=== PATIENT | male | born 1985 | race Caucasian/White ===

== ENCOUNTER 2017-04-01 18:34 | Emergency (ER) | payer OTHER, BC ==
[~2017-04-01] VITALS: Ht 172.7 cm; Wt 65.8 kg
--- NOTE | 2017-04-01 19:20 | NUR ---
LABS DRAWN EXCEPT URINE, EKG DONE. PT ARRIVED WITH 16G TO LEFT AC. PT COOPERATIVE, WATER AT THE BEDSIDE.
[2017-04-01 19:22] LABS: BASOPHILS # (AUTO) 0.2 K/uL (0.0-8.0); BASOPHILS % (AUTO) 1.7 % (0.0-2.0); EOSINOPHILS # (AUTO) 0.1 K/uL (0.0-0.7); EOSINOPHILS % (AUTO) 1.1 % (0.0-7.0); HEMATOCRIT 47.7 % (36.7-47.1); HEMOGLOBIN 16.2 g/dL (12.5-16.3); LYMPHOCYTES # (AUTO) 2.2 K/uL (20.0-40.0); LYMPHOCYTES % (AUTO) 21.6 % (20.5-51.5); MEAN CORPUSCULAR HEMOGLOBIN 28.7 uug (23.8-33.4); MEAN CORPUSCULAR HGB CONC 34 g/dL (32.5-36.3); MEAN CORPUSCULAR VOLUME 84.3 fL (73.0-96.2); MONOCYTES % (AUTO) 9.3 % (0.0-11.0); NEUTROPHILS # (AUTO) 6.8 K/uL (1.8-8.9); NEUTROPHILS % (AUTO) 66.3 % (38.5-71.5); PLATELET COUNT (AUTO) 233 K/uL (152-348); RED BLOOD CELL COUNT(AUTO) 5.66 MIL/uL (4.06-5.63); RED CELL DISTRIBUTION WIDTH 13.5 % (12.1-16.2); WHITE BLOOD COUNT (AUTO) 10.3 K/uL (3.6-10.2)
[2017-04-01 19:31] LABS: ETHANOL < 3 MG/DL (0-0)
[2017-04-01 19:36] LABS: ACETAMINOPHEN < 2.0 ug/mL (10-30); ALANINE AMINOTRANSFERASE 22 U/L (16-63); ALBUMIN 4.5 g/dL (3.4-5.0); ALKALINE PHOSPHATASE 61 U/L (50-136); ASPARTATE AMINOTRANSFERASE 19 U/L (15-37); BILIRUBIN,DIRECT 0.1 mg/dL (0.0-0.2); BILIRUBIN,TOTAL 0.7 mg/dL (0.2-1.0); CALCIUM 9.3 mg/dL (8.5-10.1); CARBON DIOXIDE 25 mmol/L (21-32); CHLORIDE 104 mmol/L (98-107); CREATININE < 0.2 mg/dL (0.6-1.3); GFR > 130 mL/min (>60); GLUCOSE 105 mg/dL (74-106); POTASSIUM 3.4 mmol/L (3.5-5.1); SODIUM SERUM 142 mmol/L (136-145); TOTAL PROTEIN, SERUM 7.5 g/dL (6.4-8.2); UREA NITROGEN, BLOOD 13 mg/dL (7-18)
[2017-04-01 19:58] LABS: *BILIRUBIN,URIN NEGATIVE (NEGATIVE); *BLOOD, URINE NEGATIVE (NEGATIVE); *CLARITY,URINE CLEAR (CLEAR); *COLOR,URINE YELLOW (YELLOW); *KETONES,URINE NEGATIVE (NEGATIVE); *PROTEIN,URINE NEGATIVE (NEGATIVE); *UROBILINOGEN,URINE 0.2 E.U./dl (NORMAL); LEUKOCYTE ESTERASE ,URINE NEGATIVE (NEGATIVE); NITRITE, URINE NEGATIVE (NEGATIVE); PH,URINE 8.5 (5.0-8.0); UGLUCOSE NEGATIVE (NEGATIVE)
[2017-04-01 20:10] LABS: *AMPHETAMINE, URINE NEGATIVE (NEGATIVE); *BARBITURATE, URINE NEGATIVE (NEGATIVE); *CANNABINOID, URINE POSITIVE (NEGATIVE); *COCCAINE, URINE NEGATIVE (NEGATIVE); *OPIATE, URINE NEGATIVE (NEGATIVE); *PHENCYCLIDINE SCREEN,URINE NEGATIVE (NEGATIVE)
[2017-04-01 20:11] LABS: RBC,URINE 0-3 /HPF (0-3)
[2017-04-01 20:12] LABS: BACTERIA,URINE NONE SEEN /HPF (NONE SEEN); SQUAMOUS EPITHELIAL CELL,UR FEW /HPF (NONE SEEN); WBC,URINE 0-3 /HPF (0-3)
[2017-04-01] MEDS ORDERED: LORAZEPAM 2 MG/1 ML VIAL IM ONE (21:00)
[2017-04-01] MEDS ORDERED: diphenhydrAMINE 50 MG/1 ML VIAL IM ONE (21:00)
[2017-04-01] MEDS ORDERED: HALOPERIDOL LACTATE 5 MG/1 ML VIAL IM ONE (21:00)
[2017-04-01] MEDS ORDERED: diphenhydrAMINE 50 MG/1 ML VIAL ONE (21:09)
[2017-04-01] MEDS ORDERED: HALOPERIDOL LACTATE 5 MG/1 ML VIAL ONE (21:09)
[2017-04-01] MEDS ORDERED: LORAZEPAM 2 MG/1 ML VIAL ONE (21:10)
--- NOTE | 2017-04-01 22:12 | NUR ---
Call received from [facility]. Requesting medical record to be faxed and they are coordinating PET evaluation, ETA unknown.
--- NOTE | 2017-04-01 23:00 | NUR ---
Jeremy from [facility] PET team arrived to interview patient.
--- NOTE | 2017-04-02 02:00 | NUR ---
Call received from [facility], patient to be transported to [facility] unit #[address]. Dr. Starr is the authorizing physician. Dr. Medina is the accepting physician. BLS ambulance ETA 60 min.
--- NOTE | 2017-04-02 02:22 | NUR ---
REGANAR report to Sergio, [facility] Unit #2 ([place]).
--- NOTE | 2017-04-02 03:06 | NUR ---
[facility] ambulance arrived to transport patient.
--- NOTE | 2017-04-02 03:23 | NUR ---
Patient Tranfers to outside Facility Physician: Dr. Medina Location: [facility] Unit [facility]2
== END 2017-04-02 03:25 | disposition short-term general hospital (02) ==
LOC: ER 18:36
DX: F29 Unspecified psychosis not due to a substance or known physiological condition (principal); E78.5 Hyperlipidemia, unspecified; F12.90 Cannabis use, unspecified, uncomplicated
CPT/HCPCS: 36415; 80048; 80076; 80307; 81001; 85025; 93005; 96372 ×3; 99285; A4663; G0480; G0481; G0482; J1200; J1630; J2060; G6040-TC